=== PATIENT | female | born 1950 | race African-American/Black ===

== ENCOUNTER → 2017-04-25 | Outpatient (CLI) | payer OTHER ==
--- NOTE | 2017-04-26 10:27 | KCIC ---
DATE: 04/25/2017 EXAM: MAMMO DEUCE SCREENING BILATERAL HISTORY: Screening COMPARISON: 12/28/2015 This study was interpreted with the benefit of Computerized Aided Detection (CAD ). FINDINGS: Breast Density: SCATTERED The breast parenchyma shows scattered fibroglandular densities. Breast parenchyma level B. There has been little change in the appearance of the breasts compared to the previous exam. Benign-appearing calcifications are noted in both breasts. IMPRESSION: Benign finding BI-RADS CATEGORY: 2 BENIGN FINDING(S) RECOMMENDED FOLLOW-UP: 12M 12 MONTH FOLLOW-UP PQRS compliance statement: Patient information was entered into a reminder system with a target due date 04/25/2018 for the next mammogram. Mammography is a sensitive method for finding small breast cancers, but it does not detect them all and is not a substitute for careful clinical examination. A negative mammogram does not negate a clinically suspicious finding and should not result in delay in biopsying a clinically suspicious abnormality. "Our facility is accredited by the [employer] Mammography Program." VONNIED
== END | disposition home or self-care (01) ==
LOC: KCIC MAMMO 08:08
PROVIDERS: ATTEND Family Medicine
DX: Z12.31 Encounter for screening mammogram for malignant neoplasm of breast (principal)
CPT/HCPCS: 77063; G0202; 77067

== ENCOUNTER → 2017-04-25 | Outpatient (CLI) | payer OTHER ==
--- NOTE | 2017-04-25 11:47 | KCIC ---
EXAM: Left third toe, 3 views. HISTORY: Pain and swelling. COMPARISON: None. FINDINGS: Frontal, lateral and oblique views of the left third toe are obtained. There is a displaced fracture along the dorsal aspect of the base of the third middle phalanx with associated third proximal interphalangeal joint subluxation/dislocation. There is surrounding soft tissue swelling. No additional fracture is seen. There is mild hallux valgus with minimal spurring at the first metatarsophalangeal joint. IMPRESSION: 1. Mildly displaced fracture along the dorsal aspect of the base of the third middle phalanx with associated third proximal interphalangeal joint subluxation/dislocation. 2. Mild hallux valgus deformity with minimal first metatarsophalangeal osteoarthritis. Electronically signed by: Yanet Hernadez MD (04/25/2017 11:43 AM) [email or web address]
== END | disposition home or self-care (01) ==
LOC: KCIC 08:11
PROVIDERS: ATTEND Family Medicine
DX: S92.522A Displaced fracture of middle phalanx of left lesser toe(s), initial encounter for closed fracture (principal); S99.922A Unspecified injury of left foot, initial encounter; M20.12 Hallux valgus (acquired), left foot; X58.XXXA Exposure to other specified factors, initial encounter; Y93.89 Activity, other specified; Y92.89 Other specified places as the place of occurrence of the external cause; Y99.8 Other external cause status
CPT/HCPCS: 73660

== ENCOUNTER → 2018-06-11 | Outpatient (CLI) | payer MEDICARE, OTHER ==
--- NOTE | 2018-06-12 09:22 | KCIC ---
Bilateral digital screening mammograms with 3-D tomosynthesis: Reason for examination: Routine screening. Comparison is made to previous studies dated 04/25/2017 and 12/28/2015. Bilateral mammograms in CC and oblique projections were obtained with 2-D imaging and 3-D tomosynthesis imaging on a Siemens Inspiration unit and reviewed on the workstation. Interpretation was made with the benefit of CAD. The skin and nipples show no abnormalities. No abnormal axillary lymph nodes are seen. The breast parenchyma shows scattered fatty and fibroglandular density. (Breast density: Category B.) There continues to be a nodule consistent with an intramammary lymph node at the 10:00 C position of the right breast. There are no new dominant masses, suspicious calcifications or architectural distortion. Benign calcifications are present. Impression: No evidence of malignancy. Recommend routine screening. BI-RAD Category 2: Benign. "Our facility is accredited by the [employer] Mammography Program." This patient's information has been entered into a reminder system for the patient to be notified with the results of her examination and a target date for the next mammogram. Electronically signed by: Jessica Benjamin MD (06/12/2018 9:18 AM) [facility]
== END | disposition home or self-care (01) ==
LOC: KCIC MAMMO 14:18
PROVIDERS: ATTEND Family Medicine
DX: Z12.31 Encounter for screening mammogram for malignant neoplasm of breast (principal)
CPT/HCPCS: 77063; 77067

== ENCOUNTER → 2018-07-06 | Outpatient (CLI) | payer MEDICARE, OTHER ==
[~2018-07-06] MED LIST: ZOLPIDEM 5 MG TABLET. PO ONE
--- NOTE | 2018-07-17 09:56 | SLEEP ---
DATE OF STUDY: 07/06/2018 ATTENDING PHYSICIAN: Dr. Carson Loyd. The patient is 67 years old who weighs 163 pounds with a BMI of 30. The patient's [place] score was 7. The patient underwent diagnostic study at [facility]. During the night of study, the patient spent 412 minutes in bed and slept for 333 minutes with a sleep efficiency of 81%. Sleep latency was 81 minutes, which is prolonged with a REM latency of 251 minutes, which is prolonged as well. Overall, sleep architecture showed normal stage 1 sleep, increased stage 2 sleep, normal slow wave and reduced REM sleep. During the night study, the patient had 12 obstructive apneas, 7 mixed apneas, no central apneas and 80 hypopneas. The patient's apnea hypopnea index was 18 per hour, supine index 25 per hour with a REM index of 85 per hour. EKG monitoring revealed normal sinus rhythm, average heart rate was 59 beats per minute. No arrhythmias observed. Nocturnal oximetry study revealed an average oxygen saturation of 94% with the lowest of 84%. 13% of time oxygen saturation remained between 80% and 89%. PLMS were seen at index of 1 per hour. Due to low AHI, the patient did not meet the split night criteria for CPAP initiation. IMPRESSION: 1. Moderate sleep apnea-hypopnea syndrome with worsening during REM sleep. Total AHI 18 per hour with a REM AHI of 85 per hour. 2. Nocturnal hypoxia secondary to obstructive sleep apnea. 3. No clinically significant periodic limb movements of sleep. RECOMMENDATIONS: 1. The patient would benefit from return to the sleep lab for CPAP titration study. 2. Alternate treatment option would include oral appliance. 3. If the patient undergoes CPAP titration, then she should be followed up in 4-6 weeks to assess compliance with CPAP and to document clinical improvement. 4. Weight loss is advised. 5. Avoid [employer] depressants. 6. Caution regarding driving until symptoms of sleep apnea resolve with the above recommendations. MD CHRISTIANO ALFORD/moustapha JOB#: [id number] / [id number] Carson Hayes MD
== END | disposition home or self-care (01) ==
LOC: RT 18:34
PROVIDERS: ATTEND Internal Medicine Critical Care Medicine
DX: G47.34 Idiopathic sleep related nonobstructive alveolar hypoventilation (principal); G47.39 Other sleep apnea
CPT/HCPCS: 95810

== ENCOUNTER 2018-09-18 18:41 | Emergency (ER) | payer MEDICARE ==
[~2018-09-18] VITALS: Ht 154.9 cm; Wt 73.9 kg
[2018-09-18] MEDS ORDERED: AMLO10TA8 PO (18:59)
[2018-09-18] MEDS ORDERED: ATOR40TA59 PO (18:59)
[2018-09-18] MEDS ORDERED: METO25TA4 PO (18:59)
[2018-09-18] MEDS ORDERED: RANI150C PO (18:59)
[2018-09-18] MEDS ORDERED: METH2.5T PO (18:59)
[2018-09-18] MEDS ORDERED: LEXAPRO20 MG PO (18:59)
[2018-09-18] MEDS ORDERED: POTA10TA12 PO (18:59)
[2018-09-18] MEDS ORDERED: TRAM50TA PO (18:59)
[2018-09-18] MEDS ORDERED: FOLI1TAB16 PO (18:59)
[2018-09-18] MEDS ORDERED: FLUT9.9S NS (18:59)
[2018-09-18] MEDS ORDERED: WARF-31 PO (18:59)
[2018-09-18] MEDS ORDERED: VALS1TAB22 PO (18:59)
[2018-09-18] MEDS ORDERED: ASPIRIN CHEWABLE 81 MG TABLET. PO ONE (19:00)
--- NOTE | 2018-09-18 19:02 | PHYS DOC ---
Adult General Chief Complaint Chief Complaint: CHEST PAIN HPI HPI Patient is a 67 year old female presents with a chief complaint of chest pain. Patient states she has had chest pain for 3 days. She describes the discomfort as a squeezing tightness in her chest that radiates to her back. Occasionally pain will start in her back and radiated to her chest. Patient states pain is worse when she is up moving around and improves while she is sitting and laying down. Patient states she has been using a heating pad for her back and her chest which seems to improve her discomfort. Patient denies any shortness of breath nausea or vomiting. Patient attributes the chest discomfort to her GERD. She states she has a sensation from her chest up to her throat which she describes as burning. Tonshemar patient states around 1830 hrs. She had an intense pain as dull and sharp starting her back and it radiated to her chest. Nataliya's episode was more intense than normal therefore patient presents to the emergency department for evaluation. Review of Systems Review of Systems Constitutional: Denies fever or chills [] Eyes: Denies change in visual acuity, redness, or eye pain [] HENT: Denies nasal congestion or sore throat [] Respiratory: Denies cough or shortness of breath [] Cardiovascular: No additional information not addressed in HPI [] GI: Denies abdominal pain, nausea, vomiting, bloody stools or diarrhea [] : Denies dysuria or hematuria [] Musculoskeletal: Denies back pain or joint pain [] Integument: Denies rash or skin lesions [] Neurologic: Denies headache, focal weakness or sensory changes [] Endocrine: Denies polyuria or polydipsia [] All other systems were reviewed and found to be within normal limits, except as documented in this note. Current Medications Current Medications Current Medications Medications (Trade) Dose Ordered Sig/Sebastian Start Time Stop Time Status Last Admin Dose Admin Aspirin (Children'S Aspirin) 324 mg 1X ONCE 09/18/18 19:00 09/18/18 19:01 DC 09/18/18 19:21 324 MG Famotidine (Pepcid Vial) 20 mg 1X ONCE 09/18/18 19:15 09/18/18 19:16 DC 09/18/18 19:21 20 MG Potassium Chloride (Klor-Con) 40 meq 1X ONCE 09/18/18 20:00 09/18/18 20:01 Allergies Allergies Allergies Coded Allergies Type Severity Reaction Last Updated Verified No Known Drug Allergies 07/06/18 No Physical Exam Physical Exam Constitutional: Well developed, well nourished, no acute distress, non-toxic appearance. [] HENT: Normocephalic, atraumatic, bilateral external ears normal, oropharynx moist, no oral exudates, nose normal. [] Eyes: PERRLA, EOMI, conjunctiva normal, no discharge. [] Neck: Normal range of motion, no tenderness, supple, no stridor. [] Cardiovascular:Heart rate regular rhythm, no murmur [] Lungs & Thorax: Bilateral breath sounds clear to auscultation [] Abdomen: Bowel sounds normal, soft, no tenderness, no masses, no pulsatile masses. [] Skin: Warm, dry, no erythema, no rash. [] Back: No tenderness, no CVA tenderness. [] Extremities: No tenderness, no cyanosis, no clubbing, ROM intact, no edema. [] Neurologic: Alert and oriented X 3, normal motor function, normal sensory function, no focal deficits noted. [] Psychologic: Affect normal, judgement normal, mood normal. [] Current Patient Data Vital Signs Vital Signs Date Time Temp Pulse Resp B/P (MAP) Pulse Ox O2 Delivery O2 Flow Rate FiO2 09/18/18 18:44 98.7 70 16 179/85 (116) 98 Room Air 98.7 Lab Values Laboratory Tests Test 09/18/18 19:10 White Blood Count 4.3 x10^3/uL (4.0-11.0) Red Blood Count 4.77 x10^6/uL (3.50-5.40) Hemoglobin 12.3 g/dL (12.0-15.5) Hematocrit 38.6 % (36.0-47.0) Mean Corpuscular Volume 81 fL (79-100) Mean Corpuscular Hemoglobin 26 pg (25-35) Mean Corpuscular Hemoglobin Concent 32 g/dL (31-37) Red Cell Distribution Width 16.4 % (11.5-14.5) H Platelet Count 201 x10^3/uL (140-400) Neutrophils (%) (Auto) 51 % (31-73) Lymphocytes (%) (Auto) 36 % (24-48) Monocytes (%) (Auto) 11 % (0-9) H Eosinophils (%) (Auto) 1 % (0-3) Basophils (%) (Auto) 1 % (0-3) Neutrophils # (Auto) 2.2 x10^3uL (1.8-7.7) Lymphocytes # (Auto) 1.6 x10^3/uL (1.0-4.8) Monocytes # (Auto) 0.5 x10^3/uL (0.0-1.1) Eosinophils # (Auto) 0.1 x10^3/uL (0.0-0.7) Basophils # (Auto) 0.0 x10^3/uL (0.0-0.2) Prothrombin Time 22.4 SEC (11.7-14.0) H Prothrombin Time INR 2.0 (0.8-1.1) H PTT 35 SEC (24-38) Sodium Level 145 mmol/L (136-145) Potassium Level 3.0 mmol/L (3.5-5.1) L Chloride Level 105 mmol/L (98-107) Carbon Dioxide Level 34 mmol/L (21-32) H Anion Gap 6 (6-14) Blood Urea Nitrogen 22 mg/dL (7-20) H Creatinine 1.1 mg/dL (0.6-1.0) H Estimated GFR (Cockcroft-Gault) 60.1 BUN/Creatinine Ratio 20 (6-20) Glucose Level 93 mg/dL (70-99) Calcium Level 9.1 mg/dL (8.5-10.1) Total Bilirubin 0.3 mg/dL (0.2-1.0) Aspartate Amino Transferase (AST) 22 U/L (15-37) Alanine Aminotransferase (ALT) 24 U/L (14-59) Alkaline Phosphatase 92 U/L (46-116) Troponin I Quantitative < 0.017 ng/mL (0.000-0.055) Total Protein 7.7 g/dL (6.4-8.2) Albumin 3.2 g/dL (3.4-5.0) L Albumin/Globulin Ratio 0.7 (1.0-1.7) L Laboratory Tests 09/18/18 19:10 Laboratory Tests 09/18/18 19:10 EKG EKG [1847] Interpretation Time: Heart rate 80 Normal sinus rhythm no ST elevation no ST depression no acute MO Radiology/Procedures Radiology/Procedures [] Course & Med Decision Making Course & Med Decision Making Pertinent Labs and Imaging studies reviewed. (See chart for details) []Patient was evaluated for chief complaint. Workup consisted of laboratory analysis radiologic imaging and EKG. Results reviewed and discussed with patient. Patient has had discomfort 3 days--- EKG and troponin within normal limits. Potassium 3.0-- replaced with 40mEq DC with Rx Kdur 40mEq Dragon Disclaimer Dragon Disclaimer This electronic medical record was generated, in whole or in part, using a voice recognition dictation system. Departure Departure Impression: Primary Impression: Chest pain Additional Impression: Hypokalemia Disposition: 01 HOME, SELF-CARE Condition: STABLE Referrals: EVELYN SPARKS MD (PCP) Patient Instructions: Chest Pain (Nonspecific), Hypokalemia Problem Qualifiers Primary Impression: Chest pain Chest pain type: other chest pain Qualified Codes: R07.89 - Other chest pain GIFTY RUBIN DO Sep 18, 2018 19:02
[2018-09-18] MEDS ORDERED: FAMOTIDINE 20 MG/2 ML VIAL IVP ONE (19:15)
[2018-09-18 19:22] LABS: BASO % 1 % (0-3); EOS # 0.1 x10^3/uL (0.0-0.7); EOS % 1 % (0-3); HEMATOCRIT 38.6 % (36.0-47.0); HEMOGLOBIN 12.3 g/dL (12.0-15.5); LYMPH # 1.6 x10^3/uL (1.0-4.8); LYMPH % 36 % (24-48); MEAN CORPUSCULAR HEMOGLOBIN 26 pg (25-35); MEAN CORPUSCULAR HGB CONC 32 g/dL (31-37); MEAN CORPUSCULAR VOLUME 81 fL (79-100); MONO # 0.5 x10^3/uL (0.0-1.1); MONO % 11 % (0-9); NEUT # 2.2 x10^3uL (1.8-7.7); NEUT % 51 % (31-73); PLATELET COUNT 201 x10^3/uL (140-400); RED BLOOD COUNT 4.77 x10^6/uL (3.50-5.40); RED CELL DISTRIBUTION WIDTH 16.4 % (11.5-14.5); WHITE BLOOD COUNT 4.3 x10^3/uL (4.0-11.0)
[2018-09-18 19:35] LABS: ALBUMIN 3.2 g/dL (3.4-5.0); ALBUMIN/GLOBULIN RATIO 0.7 (1.0-1.7); CALCIUM 9.1 mg/dL (8.5-10.1); CREATININE 1.1 mg/dL (0.6-1.0); GFR 60.1; PROTHROMBIN TIME PATIENT 22.4 SEC (11.7-14.0); TOTAL BILIRUBIN 0.3 mg/dL (0.2-1.0); TOTAL PROTEIN 7.7 g/dL (6.4-8.2)
[2018-09-18] MEDS ORDERED: POTASSIUM CHLORIDE 20 MEQ TABLET.ER. PO ONE (20:00)
[2018-09-18] MEDS ORDERED: POTA20TA82 PO (20:12)
[2018-09-18 20:18] VITALS: BP 159/77
--- NOTE | 2018-09-19 00:02 | RAD ---
PROCEDURE: CHEST AP ONLY CLINICAL INDICATION: CHEST PAIN COMPARISON: None FINDINGS: No pneumothorax identified. Cardiac and mediastinal contours unremarkable. No pulmonary consolidation or acute airspace disease. No acute osseous abnormalities identified. IMPRESSION: No pulmonary consolidation or acute airspace disease. Electronically signed by: Filiberto Landrum DO (09/18/2018 11:59 PM) [facility]
--- NOTE | 2018-09-19 01:59 | EKG ---
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
== END 2018-09-18 20:39 | disposition home or self-care (01) ==
LOC: ER 18:41
DX: R07.89 Other chest pain (principal); E87.6 Hypokalemia
CPT/HCPCS: 36415; 71045; 80053; 84484; 85025; 85610; 85730; 93005; 96374; 99284; J3490

== ENCOUNTER → 2019-07-05 | Outpatient (CLI) | payer MEDICARE ==
[~2019-07-05] MED LIST changes: +AMLO10TA8 PO; +ATOR40TA59 PO; +FLUT9.9S NS; +FOLI1TAB16 PO; +LEXAPRO20 MG PO; +METH2.5T PO; +METO25TA4 PO; +POTA20TA4 PO; +POTASSIUM CHLO10 ME1 PO; +RANI150C PO; +TRAM50TA PO; +VALS1TAB22 PO; +WARF-31 PO; -ZOLPIDEM 5 MG TABLET. PO ONE
--- NOTE | 2019-07-11 17:21 | KCIC ---
BILATERAL SCREENING MAMMOGRAM, 3-D History: Routine screening. Comparison: Bilateral mammogram June 11, 2018. Technique: MLO and CC digital tomosynthesis (3D) images obtained. Radiologist reviewed these images on dedicated workstation. Findings: Breast Tissue Density B : There are scattered areas of fibroglandular density. Stable intramammary lymph node right breast 10:00 C position. Bilateral benign calcifications are redemonstrated. There are no dominant masses, suspicious microcalcifications, or architectural distortion. IMPRESSION: No mammographic evidence of malignancy. Recommend routine screening. BI-RADS category 2: Benign findings. The images were reviewed with computer-aided detection. Patient information is entered into reminder system with a target due date for the next screening mammogram. Mammography is the most sensitive method for finding small breast cancers, but it does not detect them all and is not a substitute for careful clinical examination. A negative mammogram does not negate a clinically suspicious finding and should not result in delay in biopsying a clinically suspicious abnormality. "Our facility is accredited by the [employer] Mammography Program." Electronically signed by: Usman Vivar MD (07/11/2019 5:18 PM) [facility]
== END | disposition home or self-care (01) ==
LOC: KCIC MAMMO 13:52
PROVIDERS: ATTEND Family Medicine
DX: Z12.31 Encounter for screening mammogram for malignant neoplasm of breast (principal); N64.89 Other specified disorders of breast
CPT/HCPCS: 77063; 77067

== ENCOUNTER → 2020-10-08 | Outpatient (CLI) | payer MEDICARE ==
[~2020-10-08] MED LIST changes: +AMLO-187 PO; -AMLO10TA8 PO
--- NOTE | 2020-10-08 20:49 | KCIC ---
EXAM: Frontal pelvis with one view right hip. HISTORY: Right hip pain. COMPARISON: None. FINDINGS: No fractures are identified. The joint spaces and alignment of both hips are maintained. Th ere are moderate degenerative changes of the lower lumbar spine. IMPRESSION: 1. No clear degenerative changes at the hips for patient age. Electronically signed by: Dinesh Zheng MD (10/08/2020 8:47 PM) [facility]
== END ==
LOC: KCIC 14:05
PROVIDERS: ATTEND Family Medicine
DX: M25.511 Pain in right shoulder (principal); G89.29 Other chronic pain; M47.816 Spondylosis without myelopathy or radiculopathy, lumbar region
CPT/HCPCS: 73501

== ENCOUNTER → 2020-11-06 | Outpatient (CLI) | payer MEDICARE ==
[~2020-11-06] MED LIST changes: -VALS1TAB22 PO; +VALS1TAB23 PO
--- NOTE | 2020-11-06 17:11 | KCIC ---
BILATERAL SCREENING MAMMOGRAM, 3-D History: Routine screening. Comparison: Bilateral mammogram 02/02/2019. Technique: MLO and CC digital tomosynthesis (3D) images obtained. Radiologist reviewed these images on dedicated workstation. Findings: Breast Tissue Density B : There are scattered areas of fibroglandular density. There are bilateral benign calcifications. Stable intramammary lymph nodes of the outer posterior rig ht breast. There are no dominant masses, suspicious microcalcifications or architectural distortion. IMPRESSION: No mammographic evidence of malignancy. Recommend routine screening. BI-RADS category 2: Benign findings. The images were reviewed with computer-aided detection. Patient information is entered into reminder system with a target due date for the next screening [facility] mogram. Mammography is the most sensitive method for finding small breast cancers, but it does not detect the m all and is not a substitute for careful clinical examination. A negative mammogram does not negate a clinically suspicious finding and should not result in delay in biopsying a clinically suspicious a bnormality. "Our facility is accredited by the [employer] Mammography Program." Electronically signed by: Usman Vivar MD (11/06/2020 5:09 PM) [facility]
== END ==
LOC: KCIC MAMMO 13:35
PROVIDERS: ATTEND Family Medicine
DX: Z12.31 Encounter for screening mammogram for malignant neoplasm of breast (principal)
CPT/HCPCS: 77063; 77067

== ENCOUNTER → 2021-01-29 | Outpatient (CLI) | payer MEDICARE ==
--- NOTE | 2021-01-29 12:44 | KCIC ---
Examination: MRI of the right knee without contrast HISTORY: History of right knee pain COMPARISON: None available Technique: Multiplanar, multisequence MR imaging of the right knee are performed without contrast. FINDINGS: The anterior cruciate ligament, posterior cruciate ligament appears intact. There is blunting and increased signal identified in the posterior horn of the medial meniscus likely tear of the medial meniscus.There is an attenuated appearance of the body of the lateral meniscus wi th prominent appearing anterior horn of the lateral meniscus with oblique signal in the anterior horn suspicious for tear of the anterior horn of the lateral meniscus. The extensor mechanism appears intact. The medial collateral ligament is intact. Lateral collateral l igamentous complex including the fibular collateral, biceps femoris and popliteus tendon appears inta ct. There is deep fissuring of cartilage identified in the medial, lateral, patellofemoral compartments. The medial, lateral retinaculum appears intact Moderate knee joint effusion. The medial, lateral retinaculum appears intact. Moderate joint space loss identified in the medial, lateral, patellofemoral compartments. IMPRESSION: 1. Tear of the posterior horn of the medial meniscus. 2. Attenuated appearance of the body of the lateral meniscus with prominent appearing anterior horn of the lateral meniscus with oblique signal in the anterior horn suspicious for tear of the anterior horn of the lateral meniscus. 3. Moderate knee joint effusion. 4. Grade II chondromalacia medial, lateral, patellofemoral compartments. Electronically signed by: Andrew Resendiz MD (01/29/2021 12:42 PM) [id number]
== END ==
LOC: KCIC MRI 10:47
PROVIDERS: ATTEND Family Medicine
DX: S83.221A Peripheral tear of medial meniscus, current injury, right knee, initial encounter (principal); M23.91 Unspecified internal derangement of right knee; M25.461 Effusion, right knee; M22.41 Chondromalacia patellae, right knee; M25.561 Pain in right knee; X58.XXXA Exposure to other specified factors, initial encounter; Y93.89 Activity, other specified; Y92.89 Other specified places as the place of occurrence of the external cause; Y99.8 Other external cause status
CPT/HCPCS: 73721

== ENCOUNTER → 2021-06-18 | Outpatient (CLI) | payer MEDICARE ==
[2021-06-18] MEDS: REGADENOSON 0.4 MG/5 ML DISP.SYRIN. IV ONE (08:15)
--- NOTE | 2021-06-18 13:14 | RAD ---
MR#: [id number] Date of Study: 06/18/2021 Ordering Physician: SABA BEEBE, Referring Physician: RUPA RECINOS Tech: NICKY Ortiz, ARRT (R) (N) APPROVED REPORT Test Type: Pharmacological Stress Nurse/Tech: Katie Alatorre RN Test Indications: pre-op clearance Cardiac History: High cholesterol, HTN Medications: See Electronic Medical Record Medical History: See Electronic Medical Record Resting ECG: SR Resting Heart Rate: 62 bpm Resting Blood Pressure: 136/71mmHg Pretest Chest Pain: None Nurse/Tech Notes Lungs CTA, S1S2 Consent: The procedure was explained to the patient in lay terms. Informed consent was witnessed. Ricky eout was entered into baseclick. History and Stress Test performed by RT Gracia (R) (N) Pharm. Details Pharmacologic stress testing was performed using 0.4mg per 5ml of regadenoson given intravenously ove r 7-10 seconds. Stress Symptoms No chest pain or symptoms. POST EXERCISE Reason for Termination: Infusion complete Max HR: 85 bpm Max Blood Pressure: 138/55mmHg Blood Pressure response to exercise: Normal blood pressure response during stress. Heart Rate response to exercise: normal response Chest Pain: No. Arrhythmia: No. ST Change: No. INTERPRETATION Stress EKG Conclusion: No evidence of stress induced EKG changes. Imaging Protocol IMAGE PROTOCOL: Rest Tc-99m/stress Tc-99m 1 day Rest: Stress: Viability: Radiopharm.Tc99m [id number] Sestamibi [id number] 33mCi Img Date 06/18/2021 06/18/2021 Inj-Img [id number]. 60min. Rest Admin Site:IV - Left AntecubitalAdministrator:RT Gracia (R)(N) Stress Admin Site: IV - Left AntecubitalAdministrator: RT Gracia (R)(N) STRESS DATA End Diast. Vol.37.0mlLVEDV index BSA22.0ml End Syst. Vol.8.0mlLVESV index BSA5.0ml Myocardial Mass87.0gEject. Erlhjjry42.0% Stress Scores Regional WT0.00Summed WT0.00 Regional WM0.00Summed WM5.00 The rest and stress images show normal perfusion, normal contraction and thickening. LV Perf. Quant 17 Seg. SSS0.00 17 Seg. SRS0.00 17 Seg. SDS0.00 Stress Defect Extent (% LAD)0.00Rest Defect Extent (% LAD)0.00Rev. Defect Extent (% LAD)0.00 Stress Defect Extent (% LCX) 0.00Rest Defect Extent (% LCX)0.00Rev. Defect Extent (% LCX)0.00 Stress Defect Extent (% RCA)0.00Rest Defect Extent (% RCA)0.00Rev. Defect Extent (% RCA)0.00 Stress Defect Extent (% ADELITA)0.00Rest Defect Extent (% ADELITA)0.00Rev. Defect Extent (% ADELITA)0.00 Other Information Quality:Average Risk Assessment: Low Risk Conclusion 1. No evidence of EKG changes with stress testing. 2. Normal perfusion at stress/rest. 3. Low risk study. 4. EF > 60%. Signed by : Melchor Barboza, Electronically Approved : 06/18/2021 13:14:27
== END ==
LOC: NM 08:53
PROVIDERS: ATTEND Internal Medicine Cardiovascular Disease
DX: Z01.818 Encounter for other preprocedural examination (principal)
CPT/HCPCS: 78452; 93017; A9500; J2785